=== PATIENT | female | born 1980 | race Caucasian/White ===

== ENCOUNTER 2022-07-19 05:59 | Day surgery (SDC) | payer MEDICAID ==
[2022-07-13 10:52] LABS: BASOPHILS % (AUTO) 0.7 % (0-1); EOSINOPHILS % (AUTO) 0.7 % (0-6); LYMPHOCYTES # (AUTO) 1.3 X10'3 (1.1-4.8); LYMPHOCYTES % (AUTO) 25.7 % (21-51); MEAN CORPUSCULAR HEMOGLOBIN 29.5 PG (27.0-31.0); MEAN CORPUSCULAR HGB CONC 33.2 g/dL (33.0-36.5); MEAN CORPUSCULAR VOLUME 88.9 FL (78-98); MEAN PLATELET VOLUME 7.5 FL (7.4-10.4); MONOCYTES # (AUTO) 0.5 X10'3 (0-0.9); MONOCYTES % (AUTO) 9.8 % (2-12); NEUTROPHILS # (AUTO) 3.3 X10'3 (1.8-7.7); NEUTROPHILS % (AUTO) 63.1 % (42-75); PRE OP HEMATOCRIT 41.6 % (35.0-45.0); PRE OP HEMOGLOBIN 13.8 g/dL (12.0-16.0); PRE OP PLATELET COUNT 284 X10'3 (140-440); RED BLOOD COUNT 4.68 X10'6 (4.20-5.60); RED CELL DISTRIBUTION WIDTH 13.9 % (11.5-14.5)
[2022-07-13 11:06] LABS: ALBUMIN/GLOBULIN RATIO 1.1 (1.1-1.5); ALKALINE PHOSPHATASE 67 IU/L (46-116); BLOOD UREA NITROGEN 16 MG/DL (7-18); BUN/CREATININE RATIO 21.6 (10.0-20.0); CALCIUM 9.2 MG/DL (8.5-10.1); CHLORIDE 104 MMOL/L (99-107); CREATININE 0.74 MG/DL (0.40-0.90); PRE OP ALT 25 U/L (30-65); PRE OP ANION GAP 8 (8-16); PRE OP AST 23 U/L (10-37); PRE OP BILIRUB, TOTAL 1.3 MG/DL (0.0-1.0); PRE OP GLUCOSE 93 MG/DL (70-104); PRE OP POTASSIUM 3.9 MMOL/L (3.4-5.1); PRE OP SODIUM 141 MMOL/L (135-145); TOTAL CARBON DIOXIDE 29.4 MMOL/L (24-32); TOTAL PROTEIN 7.5 G/DL (6.4-8.2); eGFR 86 ML/MIN
[2022-07-13 11:16] LABS: HCG SERUM QL NEGATIVE
[2022-07-19] VITALS (8 sets, daily range): BP systolic 92–113; BP diastolic 58–75
[~2022-07-19] VITALS: Ht 170.2 cm; Wt 58.1 kg
[~2022-07-19 05:59] MED LIST: LACT1CAP65 PO; MULT-1085 PO; OMEG-5 PO; VITAMIN C; [UNRECOGNIZED DRUG - OTHER]; [UNRECOGNIZED DRUG - OTHER]; [UNRECOGNIZED DRUG - OTHER]; cefazolin 2gm/D5W 100mL 100 ML IV ONE; ringers solution, lacted 1,000 ML IV SCH
[2022-07-19] MEDS: famotidine 20mg tablet PO ONE ×2 (07:00→08:28)
[2022-07-19] MEDS ORDERED: BUPIVAcaine/PF 2.5 mg/ml (0.25%) 30ml vial ONE (08:30)
[2022-07-19] MEDS ORDERED: fentaNYL/PF 50MCG/1 ML 2ML syringe ONE (08:48)
[2022-07-19] MEDS ORDERED: MIDAZolam 1 MG/ML 5ML VIAL ONE (08:49)
[2022-07-19] MEDS ORDERED: LIDOcaine 1% W/epiNEPHrine 1:100,000 20ml vial ONE (08:58)
[2022-07-19] MEDS ORDERED: BUPIVAcaine/PF 5 mg/ml 10ml ONE (08:58)
[2022-07-19] MEDS ORDERED: LIDOcaine 1% W/epiNEPHrine 1:100,000 20ml vial IJ ONE (09:18)
[2022-07-19] MEDS ORDERED: BUPIVAcaine 0.5% inj/PF 30 ml vial IJ ONE (09:19)
[2022-07-19] MEDS ORDERED: ondansetron/PF 4mg/2ml inj IV PRN (09:20)
[2022-07-19] MEDS ORDERED: morphine 4 MG/ML inj SYRINge IV PRN (09:20)
[2022-07-19] MEDS ORDERED: morphine 2 MG/ML inj. syringe IV PRN (09:20)
[2022-07-19] MEDS ORDERED: ringers solution, lacted 1,000 ML IV SCH (09:20)
[2022-07-19] MEDS ORDERED: proCHLORperazine 10 MG/2 ml inj IV PRN (09:20)
[2022-07-19] MEDS ORDERED: meperidine/PF 25mg/ml syringe IV PRN ×3 (09:20)
[2022-07-19] MEDS ORDERED: HYDROcodone/acetaminophen 10/325mg tab PO PRN (09:35)
--- NOTE | 2022-07-19 09:40 | NUR ---
PT ARRIVED TO [facility]IA [facility], ACCOMPANIED BY DR. ALLEN-ANESTHESIA REPORT GIVEN, PT WAKING UP, VSS, RIGHT ARM IN SLING-DRSG TO SHOULDER CDI, FINGERS PINK/WARM, +2 PULSE, NEURO INTACT.
[2022-07-19] MEDS ORDERED: ROPIVAcaine 0.5% (5mg/ml) 30ml vial ONE (09:57)
--- NOTE | 2022-07-19 10:50 | NUR ---
PT DOING GREAT, DENIES PAIN, VSS, UP AND GETTING DRESSED, NO CHANGES IN ASSESSMENT, D/C INSTRUCTIONS GIVEN TO PT-ALL QUESTIONS ANSWERED, TAKEN VIA W/C WITH ALL BELONGINGS TO VEHICLE FOR TRANSPORT HOME.
== END 2022-07-19 10:50 | disposition home or self-care (01) ==
LOC: PAS 05:59
PROVIDERS: ATTEND Orthopaedic Surgery
DX: D17.21 Benign lipomatous neoplasm of skin and subcutaneous tissue of right arm (principal); Z79.899 Other long term (current) drug therapy; Z88.2 Allergy status to sulfonamides; Z88.6 Allergy status to analgesic agent; Z88.8 Allergy status to other drugs, medicaments and biological substances
CPT/HCPCS: 23071; 36415; 80053; 82948; 84703; 85025; J0690; J2250; J3010; J3490; J7030; J7120; S0020; Z7506; Z7512; A4215; A4618; A6449; A7000; J2795

== ENCOUNTER 2025-03-22 14:50 | Emergency (ER) | payer MEDICAID, OTHER ==
[~2025-03-22] VITALS: Ht 170.2 cm; Wt 58.9 kg
[~2025-03-22 14:50] MED LIST changes: -cefazolin 2gm/D5W 100mL 100 ML IV ONE; -ringers solution, lacted 1,000 ML IV SCH
[2025-03-22 15:00] VITALS: RESP 18
--- NOTE | 2025-03-22 15:04 | ELECTROCARDIOGRAPH REPORT ---
[facility] Test Date: 2025-03-22 Test Time: 14:55:53 Pat Name: JOSSELINE ISAACS Department: EMERGENCY ROOM Room: Gender: F Senior Marketing Specialist: ARMOND : 1980 Requested By: SANA ALTMAN Order Number: [id number] Reading MD: Dr. YAYA Gerardo Measurements Intervals Stanley Rate: 112 P: 83 GA: 166 QRS: 72 QRSD: 97 T: 25 QT: 317 QTc: 433 Interpretive Statements Sinus tachycardia Right atrial enlargement Consider right ventricular hypertrophy Baseline wander in lead(s) V3 Electronically Signed On 03-23-2025 19:39:[address] YAYA Gerardo Please click the below link to view image of tracing.
[2025-03-22 15:14] LABS: MEAN PLATELET VOLUME 7.2 FL (7.4-10.4); RED CELL DISTRIBUTION WIDTH 14.3 % (11.5-14.5)
--- NOTE | 2025-03-22 15:51 | RADIOLOGY REPORT ---
CLINICAL HISTORY: CP TECHNIQUE: AP view of the chest was obtained. WID: COMPARISON: None FINDINGS: Lungs: clear Cardiomediastinal silhouette: normal in size Bones: No acute osseous abnormality. Imaged Upper Abdomen: unremarkable. IMPRESSION: NO ACUTE CARDIOPULMONARY PROCESS.
[2025-03-22 16:59] LABS: CREATININE 0.90 MG/DL (0.40-0.90); PRO BRAIN NATRIURETIC PEPTIDE 132 PG/ML (0-125); TOTAL CARBON DIOXIDE 24.0 MMOL/L (24-32); eCRCL 73 ML/MIN; eGFR 67 ML/MIN
[2025-03-22 17:00] VITALS: BP 155/101; PULSE 96; O2SAT 99
--- NOTE | 2025-03-22 19:07 | Physician Documentation ---
History of Present Illness ~ Chief Complaint: Chest Pain Stated Complaint: HIGH BLOOD PRESSURE WITH CP Time Seen by MD: 18:36 HPI Patient is a very pleasant 44-year-old female that presents to the emergency department for multiple complaints most notably concern for hypertension over the last several days intermittently. Patient reports that she has not had shortness of breath associated the hypertension is causing her great concern. 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 Reports that she has been unable to get set up with primary care provider to this point. Patient denies radiating chest pain chest pressure visual changes shortness of breath lightheadedness or dizziness. Does report intermittent chest pain. Patient denies fever chills nausea vomiting diarrhea at this time. Other symptoms reported at this time. Medication Reconciliation Allergies: Coded Allergies: Sulfa (Sulfonamide Antibiotics) (Verified Allergy, Severe, RASH AND THROAT CLOSES, 03/22/25) codeine (Verified Adverse Reaction, Mild, VOMITING, 03/22/25) ibuprofen (Verified Adverse Reaction, Mild, STOMACH UPSET, 03/22/25) Scheduled Docosahexanoic Acid/Epa (Fish Oil 1,000 Mg Softgel), 1 CAP PO DAILY, (Reported) Lactobacillus Acidophilus (Probiotic), 1 CAP PO Q8H, (Reported) Multivitamin (Multi Vitamin Daily), 1 TAB PO DAILY, (Reported) Miscellaneous Medications [Adaptacrine], (Reported) [Enzecore], (Reported) [L-Gut], (Reported) [Vitamin C], (Reported) Review of Systems ROS As stated above in the HPI, otherwise all systems are reviewed and negative. Physical Exam Vital Signs: Temperature: 99.1, Source: Temporal, Heart Rate: 96, Respiratory Rate: 18, BP: 155/101, Pulse Oximetry: 99, Weight: 58.900 Oxygen Flow Rate: 0 Physical Exam VITALS: Reviewed and as above. GENERAL: Alert, no apparent distress. HEENT: Normocephalic, atraumatic, PERRL, EOMI, dry mucosa, no erythema RESPIRATORY: Lungs clear, normal breath sounds, no respiratory distress. CHEST: No accessory muscle use, no retractions CV: Regular rate, rhythm, no edema, no murmur, No: JVD, hypertension noted on initial examination, decrease in hypertension noted during patient's visit here in the emergency department. GI: Soft, non-tender, bowels sounds present, no rebound, guarding, or rigidity BACK: No CVA tenderness, or swelling MUSCULOSKELETAL No deformities, no edema SKIN: Warm and dry, no rash NEURO: Oriented x4, No motor or sensory deficit PSYCH: Normal mood and affect, no agitation Progress Results/Orders Results/Orders Vital Signs 03/22/25 03/22/25 15:00 17:00 Temp 99.1 Pulse 100 96 Resp 18 B/P (MAP) 173/72 155/101 (119) Pulse Ox 100 99 O2 Flow Rate 0 Laboratory Tests Test 03/22/25 14:59 03/22/25 17:13 White Blood Count 8.4 Red Blood Count 4.91 Hemoglobin 14.0 Hematocrit 42.6 Mean Corpuscular Volume 86.7 Mean Corpuscular Hemoglobin 28.6 Mean Corpuscular Hemoglobin Concent 33.0 Red Cell Distribution Width 14.3 Platelet Count 348 Mean Platelet Volume 7.2 L Neutrophils (%) (Auto) 73.0 Lymphocytes (%) (Auto) 18.2 L Monocytes (%) (Auto) 7.4 Eosinophils (%) (Auto) 0.7 Basophils (%) (Auto) 0.7 Neutrophils # (Auto) 6.1 Lymphocytes # (Auto) 1.5 Monocytes # (Auto) 0.6 Eosinophils # (Auto) 0.1 Basophils # (Auto) 0.1 CBC Comment Sodium Level 138 Potassium Level 3.2 L Chloride Level 102 Carbon Dioxide Level 24.0 Anion Gap 12 Blood Urea Nitrogen 9 Creatinine 0.90 Estimated GFR/1.73 m2 67 BUN/Creatinine Ratio 10.0 Glucose Level 89 Calcium Level 9.0 Troponin I High Sensitivity 5 5 Pro-B-Type Natriuretic Peptide 132 H Albumin 4.2 Chemistry Comments Troponin I High Sens Percent Delta 0 Troponin I Hi Sens Absolute Change 0 Medical Decision Making Additional information obtaine: other Findings Chief Complaint: Intermittent hypertension and chest pain History of Present Illness: 44-year-old female presenting to the emergency department with multiple complaints, most notably intermittent hypertension over the last several days causing significant concern. Patient denies shortness of breath associated with hypertension, radiating chest pain, chest pressure, visual changes, lightheadedness, or dizziness. Reports intermittent chest pain without associated symptoms. Denies fever, chills, nausea, vomiting, or diarrhea. Patient has history of Cline's palsy, currently in physical therapy. Unable to establish care with primary care provider. Emergency Department Course: Vital signs: Blood pressure elevations documented Cardiac workup: 12-lead electrocardiogram normal Laboratory diagnostics: Complete metabolic panel, complete blood count normal Imaging: Chest X-ray normal Cardiac biomarkers: Within normal limits Medical Decision-Making: Chest Pain Evaluation: Patient presented with intermittent chest pain. Given the absence of typical ischemic features (no pressure, tightness, squeezing, or radiation), normal ECG, normal cardiac biomarkers, and normal chest X-ray, acute coronary syndrome was effectively ruled out. The chest pain characteristics are more consistent with noncardiac etiology. Patient meets criteria for low-risk disposition without further noninvasive cardiac testing. Hypertension Management: Patient presents with asymptomatic elevated blood pressure without evidence of hypertensive emergency or end-organ damage. The [place] [employer] supports initiating antihypertensive treatment in the ED for patients who lack access to reliable outpatient care, particularly to address health care disparities. However, the [place] [employer] recommends avoiding routine ED medical interventions for asymptomatic elevated blood pressure, with preference toward arranging close follow-up. Given this patient's inability to establish primary care and the documented intermittent hypertension causing significant concern, the benefits of initiating therapy must be weighed against the need for long-term management and titration. Risk Stratification: Patient is 44 years old without documented cardiovascular disease, diabetes, or chronic kidney disease. Laboratory evaluation did not reveal secondary causes of hypertension such as electrolyte abnormalities or renal dysfunction. No clinical features suggesting secondary hypertension were identified. Disposition Decision: Patient is appropriate for discharge home given: Normal cardiac workup ruling out acute coronary syndrome Absence of hypertensive emergency or end-organ damage Hemodynamic stability No life-threatening conditions identified Discharge Plan: Primary Care Follow-up: Emphasized critical importance of establishing care with primary care provider within 14-30 days for ongoing hypertension management and cardiovascular risk assessment. Patient counseled that consistent, high-quality outpatient care is essential for long-term blood pressure control. Blood Pressure Monitoring: Recommended home blood pressure monitoring using validated device to assess for sustained hypertension versus white coat hypertension. Patient educated on proper measurement technique. Lifestyle Modifications: Counseled on evidence-based lifestyle interventions inc luding dietary modifications, sodium restriction, weight management if applicable, regular physical activity, and alcohol moderation. Medication Considerations: Discussion held regarding potential initiation of antihypertensive therapy. Given patient's lack of established primary care, consideration given to initiating therapy to address health care access disparities. However, preference given to establishing primary care relationship for appropriate long-term management and medication titration. Return Precautions: Patient instructed to return immediately for severe headache, visual changes, chest pain, shortness of breath, neurological symptoms, or blood pressure readings consistently above 180/120 mmHg. Chest Pain Follow-up: Patient counseled that while cardiac causes have been ruled out, follow-up evaluation for alternative noncardiac etiologies should be pursued with primary care provider. Patient Education: Extensive discussion held regarding the importance of establishing primary care, the chronic nature of hypertension requiring long- term management, and the need for close follow-up. Patient verbalized understanding of discharge instructions and return precautions. Patient expressed commitment to establishing primary care within recommended timeframe. Complexity of Medical Decision-Making: Moderate complexity given multiple presenting complaints, need to rule out acute coronary syndrome, evaluation of asymptomatic hypertension, consideration of health care access barriers, and coordination of appropriate outpatient follow-up. Heart Score: 1 Differential Dx:Considerations: Include: angina, aortic dissection, chest wall pain, cholelithiasis, CHF, costochondritis, esophageal reflux/spasm, gastritis, herpes zoster, myocardial infarction, pericarditis, pleuritis, pancreatitis, pneumonia, pneumothorax, pulmonary embolus, other Departure Disposition: 01 HOME / SELF CARE / HOMELESS Impression: Primary Impression: Chest pain Additional Impression: Benign hypertension Condition: Stable Discharge Instructions: Hypertension, Adult, [id number], Managing Anxiety, Adult, Nonspecific Chest Pain, Adult Additional Instructions: Why You Came to the Emergency Department You came to the emergency department today because you were concerned about high blood pressure (hypertension) over the last several days and intermittent chest pain. We performed tests to make sure you did not have any serious heart problems or other emergencies. What We Found The good news is that all of your tests came back normal: Your heart tracing (EKG) was normal Your blood tests were normal Your chest X-ray was normal Your heart blood tests showed no signs of heart damage Your high blood pressure readings did not show any signs of damage to your organs, which means you can safely follow up with a primary care doctor rather than needing to stay in the hospital. What You Need to Do Next 1. Schedule an appointment with a primary care doctor within 1-2 weeks This is the most important step. You need a doctor who can monitor your blood pressure over time and help you manage it properly. High blood pressure is a long-term condition that needs regular care and follow-up, not just emergency treatment. At your primary care visit, your doctor will: Check your thyroid levels (thyroid problems can cause high blood pressure) Check your hormone levels (you may be approaching menopause, which can affect blood pressure) Repeat some of your blood tests Discuss whether you need a ZIO patch (a small device you wear for several days that monitors your heart rhythm at home) Decide if you need blood pressure medication 2. Monitor your blood pressure at home Home blood pressure monitoring is very important and helps your doctor make better treatment decisions. Here's how to do it correctly: Buy a validated blood pressure monitor that goes on your upper arm (not your wrist). You can find a list of good monitors at [employer] Take your blood pressure twice a day - once in the morning and once in the evening Take it at the same times each day Sit quietly for 5 minutes before measuring Rest your arm on a table at heart level Don't talk while measuring Write down all your readings to show your doctor Taking your blood pressure at home will give your doctor much better information than just the readings taken in the office. 3. Make healthy lifestyle changes While you wait for your doctor's appointment, you can start making changes that lower blood pressure: Reduce salt in your diet - Aim for less than 2,300 mg of sodium per day (about 1 teaspoon of salt) Eat more fruits and vegetables - Try the DASH diet (your doctor can give you information about this) Exercise regularly - Aim for 30 minutes of activity most days of the week Maintain a healthy weight - Even losing 5-10 pounds can help lower blood pressure Limit alcohol - No more than 1 drink per day for women Don't smoke - If you smoke, ask your doctor about quitting programs Manage stress - Try relaxation techniques, deep breathing, or meditation When to Return to the Emergency Department Come back to the emergency department right away if you have any of these symptoms: Severe headache that doesn't go away with pain medicine Vision changes - blurry vision, seeing spots, or loss of vision Chest pain or pressure - especially if it spreads to your arm, neck, or jaw Shortness of breath or trouble breathing Severe dizziness or feeling like you might pass out Weakness or numbness on one side of your body, trouble speaking, or facial drooping (signs of stroke) Blood pressure readings consistently above 180/120 mmHg that don't come down after resting quietly for 30 minutes Nosebleeds that won't stop Severe anxiety or feeling of doom Important Reminders High blood pressure usually doesn't cause symptoms, which is why it's called the "silent killer." Just because you feel fine doesn't mean your blood pressure is controlled. The emergency department is for emergencies. Long-term blood pressure control requires regular care from a primary care doctor who knows you and can adjust your treatment over time. Don't stop taking any medications you were already on without talking to your doctor first. If you start having trouble affording your medications or getting to appointments, tell your doctor - there are programs that can help. Follow-Up Schedule Within 1-2 weeks: See a primary care doctor After starting any blood pressure medication: Follow up within 1 month, then monthly until your blood pressure is controlled Once blood pressure is controlled: Follow up every 3-6 months Referrals: NO PRIMARY CARE PROVIDER (PCP) Education Educated: Patient Educated regarding: diagnosis, treatment, need for follow up Signature Scribe Signature: A Attestation: Scribed for Deanna Menjivar by JERRY Perdomo . 03/22/25 19:18 DEANNA MENJIVAR Mar 22, 2025 19:06
[2025-03-22 19:25] VITALS: TEMP 99.1
== END 2025-03-22 19:31 | disposition home or self-care (01) ==
LOC: ER 14:51
DX: R07.89 Other chest pain (principal); I10 Essential (primary) hypertension; Z88.2 Allergy status to sulfonamides; Z88.5 Allergy status to narcotic agent; Z88.6 Allergy status to analgesic agent; R06.02 Shortness of breath
CPT/HCPCS: 36415; 71045; 80048; 83880; 84484; 85025; 93005; 99285